=== PATIENT | female | born 1985 | race Caucasian/White ===

== ENCOUNTER 2017-10-17 13:48 | Emergency (ER) | payer SELFPAY ==
[~2017-10-17] VITALS: Ht 157.5 cm; Wt 54.4 kg
[2017-10-17 14:09] VITALS: BP 99/60
[2017-10-17] MEDS ORDERED: NAPROXEN 500 MG TABLET PO ONE (14:30)
[2017-10-17] MEDS ORDERED: traMADol 50 MG TABLET PO ONE (14:30)
--- NOTE | 2017-10-17 14:43 | PHYS DOC ---
Past Medical History Past Medical History: No Pertinent History Past Surgical History: , Other Additional Past Surgical Histo: x 3. Breast augmentation x 2. Alcohol Use: None Drug Use: None Adult General Chief Complaint Chief Complaint: DENTAL PROBLEM HPI HPI Patient is a 32 year old female who presents to the department today with complaint of lower left quadrant dental pain and a broken tooth. She states that her pain became severe today. She has a dental appointment on Friday to have the tooth taken out. She denies any recent injury states that the tooth has been broken for several months. Currently she rates her pain as a 10 out of 10 on the pain scale. She states she took a gram of Tylenol earlier today did not help her pain. Review of Systems Review of Systems Constitutional: Denies fever or chills [] HENT: Denies nasal congestion, difficulty swallowing, or sore throat; reports LLQ dental pain and dental fracture[] Neurologic: Denies headache, focal weakness or sensory changes [] Current Medications Current Medications Current Medications Medications (Trade) Dose Ordered Sig/Nain Start Time Stop Time Status Last Admin Dose Admin Naproxen (Naprosyn) 500 mg 1X ONCE 10/17/17 14:30 10/17/17 14:33 DC Tramadol HCl (Ultram) 50 mg 1X ONCE 10/17/17 14:30 10/17/17 14:33 DC Allergies Allergies Allergies Coded Allergies Type Severity Reaction Last Updated Verified cephalexin Allergy Intermediate Rash,Vomiting 01/13/14 Yes codeine Allergy Intermediate Rash,Vomiting 01/13/14 Yes Physical Exam Physical Exam Constitutional: Well developed, well nourished, no acute distress, non-toxic appearance. [] HENT: Normocephalic, atraumatic, bilateral external ears normal, oropharynx moist, tooth 18 fracture noted, tenderness to palpation of tooth 18, no oral exudates, nose normal. [] Eyes: PERRLA, EOMI, conjunctiva normal, no discharge. [] Lungs & Thorax: Respirations even and unlabored. Skin: Warm, dry, no erythema, no rash. [] Neurologic: Alert and oriented X 3, normal motor function, normal sensory function, no focal deficits noted. [] Psychologic: Affect normal, judgement normal, mood normal. [] Current Patient Data Vital Signs Vital Signs Date Time Temp Pulse Resp B/P (MAP) Pulse Ox O2 Delivery O2 Flow Rate FiO2 10/17/17 14:09 98.4 77 18 99/60 (73) 97 Room Air 98.4 EKG EKG [] Radiology/Procedures Radiology/Procedures [] Course & Med Decision Making Course & Med Decision Making Pertinent Labs and Imaging studies reviewed. (See chart for details) Pt is a 32 year old female who presents to the ER with complaints of dental pain in the LLQ x1 day with a broken tooth. VSS, physical exam and patient hx consistent with infected dental decay and fractured tooth, treated as such. Pt given 500 mg of naproxen and one hydrocodone 5/325 in the ER. Prescriptions written for Pen VK and naproxen. Patient verbalized an understanding of home care, medications, follow-up, and return to ED instructions and was in agreement with the plan of care. [] Dragon Disclaimer Dragon Disclaimer This electronic medical record was generated, in whole or in part, using a voice recognition dictation system. Departure Departure Impression: Primary Impression: Pain due to dental caries Additional Impressions: Infected dental caries Fractured tooth Disposition: HOME, SELF-CARE Condition: STABLE Referrals: GOPAL MUNSON (PCP) Patient Instructions: Dental Caries-Brief Additional Instructions: Fill prescriptions and use as directed. Follow-up with dentist next week as planned. Return to the ER if her symptoms worsen. Scripts Naproxen (NAPROXEN) 500 Mg Tablet 500 MG PO BID for 10 Days, #20 TAB 0 Refills Prov: MOISES GONZÁLES APRN 10/17/17 Penicillin V Potassium (PENICILLIN V POTASSIUM) 500 Mg Tablet 1 TAB PO QID for 7 Days, #28 TAB 0 Refills Prov: MOISES GONZÁLES APRN 10/17/17 Problem Qualifiers Additional Impressions: Fractured tooth Encounter type: initial encounter Fracture type: open Qualified Codes: S02.5XXB - Fracture of tooth (traumatic), initial encounter for open fracture MOISES GONZÁLES [employer] Oct 17, 2017 14:43
[2017-10-17] MEDS ORDERED: HYDROcodone/APAP 5/325MG 1 TAB TABLET PO ONE (14:45)
[2017-10-17] MEDS ORDERED: PENI500T PO (14:53)
[2017-10-17] MEDS ORDERED: NAPR-514 PO (14:54)
== END 2017-10-17 14:59 | disposition home or self-care (01) ==
LOC: ER 13:48
DX: S02.5XXB Fracture of tooth (traumatic), initial encounter for open fracture (principal); K02.9 Dental caries, unspecified; Z98.890 Other specified postprocedural states; Z88.1 Allergy status to other antibiotic agents; Z88.5 Allergy status to narcotic agent; X58.XXXA Exposure to other specified factors, initial encounter; Y93.89 Activity, other specified; Y92.89 Other specified places as the place of occurrence of the external cause; Y99.8 Other external cause status
CPT/HCPCS: 99283

== ENCOUNTER 2018-07-01 23:12 | Emergency (ER) | payer BC, SELFPAY ==
[~2018-07-01] VITALS: Ht 154.9 cm; Wt 53.5 kg
[~2018-07-01 23:12] MED LIST: NAPR-514 PO; PENI500T PO
[2018-07-01 23:34] VITALS: BP 94/56
--- NOTE | 2018-07-01 23:53 | PHYS DOC ---
Past Medical History Past Medical History: No Pertinent History Past Surgical History: No Surgical History Additional Past Surgical Histo: x 3. Breast augmentation x 2. Alcohol Use: None Drug Use: None Adult General Chief Complaint Chief Complaint: FOOT INJURY PAIN [facility] HPI Patient is a 33-year-old female that presents with right ankle pain that started 1 hour ago. The patient rolled her ankle coming down the steps. The pain is located on the lateral aspect of the right foot. Patient tried Aleve prior to arrival unknown dose. The Aleve was not effective patient rates her pain 8 out of 10 and states is throbbing. Review of Systems Review of Systems Constitutional: Denies fever or chills [] Eyes: Denies change in visual acuity, redness, or eye pain [] HENT: Denies nasal congestion or sore throat [] Respiratory: Denies cough or shortness of breath [] Cardiovascular: No additional information not addressed in HPI [] GI: Denies abdominal pain, nausea, vomiting, bloody stools or diarrhea [] : Denies dysuria or hematuria [] Musculoskeletal: Denies back pain but reports R foot pain. Integument: Denies rash or skin lesions [] Neurologic: Denies headache, focal weakness or sensory changes [] Endocrine: Denies polyuria or polydipsia [] Complete systems were reviewed and found to be within normal limits, except as documented in this note. Allergies Allergies Allergies Coded Allergies Type Severity Reaction Last Updated Verified cephalexin Allergy Intermediate Rash,Vomiting 01/13/14 Yes codeine Allergy Intermediate Rash,Vomiting 01/13/14 Yes Physical Exam Physical Exam Constitutional: Well developed, well nourished, no acute distress, non-toxic appearance. [] HENT: Normocephalic, atraumatic, bilateral external ears normal, oropharynx moist, no oral exudates, nose normal. [] Eyes: PERRLA, EOMI, conjunctiva normal, no discharge. [] Neck: Normal range of motion, no tenderness, supple, no stridor. [] Cardiovascular:Heart rate regular rhythm, no murmur [] Lungs & Thorax: Bilateral breath sounds clear to auscultation [] Abdomen: Soft, no tenderness, no masses, no pulsatile masses. [] Skin: Warm, dry, no erythema, no rash. [] Back: No tenderness, no CVA tenderness. [] Extremities: Tenderness to the R lateral aspect of the foot with minor swelling, no cyanosis, no clubbing, ROM intact. Neurologic: Alert and oriented X 3, normal motor function, normal sensory function, no focal deficits noted. [] Psychologic: Affect normal, judgement normal, mood normal. [] Current Patient Data Vital Signs Vital Signs Date Time Temp Pulse Resp B/P (MAP) Pulse Ox O2 Delivery O2 Flow Rate FiO2 07/01/18 23:34 98.1 91 18 94/56 (69) 97 Room Air 98.1 EKG EKG [] Radiology/Procedures Radiology/Procedures Preliminary X-ray interpretation by Dr. De Leon No acute fracture or dislocation.[] Course & Med Decision Making Course & Med Decision Making Pertinent Labs and Imaging studies reviewed. (See chart for details) Discussed symptoms with patient. Will order an X-ray to evaluate her foot. X-ray is negative. Will place in [place] bandage and have use RICE. Patient is agreeable. Dragon Disclaimer Dragon Disclaimer This electronic medical record was generated, in whole or in part, using a voice recognition dictation system. Departure Departure Impression: Primary Impression: Foot pain, right Disposition: HOME, SELF-CARE Condition: STABLE Referrals: GOPAL MUNSON (PCP) Patient Instructions: Elastic Bandage and RICE, RICE - Routine Care for Injuries Additional Instructions: Please follow up if the pain does not improve. Take OTC ibuprofen as needed for pain and swelling. Use carlitos wrap and follow RICE. You can ICE for 20 minutes on 20 minutes off. CASANDRA BEDOLLA APRN July 01, 2018 23:53
--- NOTE | 2018-07-02 08:08 | RAD ---
Right foot, 3 views, 07/01/2018: HISTORY: Trauma A calcific density compatible with an accessory ossicle is present along the medial aspect of the second metatarsal head. No acute fracture or dislocation is identified. IMPRESSION: No acute bony abnormality is detected. Electronically signed by: Reyes Cleaning MD (07/02/2018 8:05 AM) [facility]
== END 2018-07-02 00:22 | disposition home or self-care (01) ==
LOC: ER 23:12
DX: M25.571 Pain in right ankle and joints of right foot (principal); Z98.890 Other specified postprocedural states; Z88.1 Allergy status to other antibiotic agents; Z88.5 Allergy status to narcotic agent
CPT/HCPCS: 73630; 99284